=== PATIENT | female | born 2000 | race Caucasian/White ===

== ENCOUNTER 2021-09-10 00:38 | Inpatient (IN) | payer SELFPAY ==
[2021-09-10] VITALS (7 sets, daily range): BP systolic 103–126; BP diastolic 63–101; PULSE 65–88; RESP 16–18; TEMP 36.4–36.8; O2SAT 96–99; BMI 38.4
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
[2021-09-10 01:00] LABS: Add Urine Microscopic? NO; Charge for UA Resulting for Rev
[2021-09-10 01:01] LABS: Basophils # 0.1 10^3/uL (0.0-0.1); Basophils % 0.6 %; Eosinophils % 0.2 %; Hematocrit 47.6 % (37.0-47.0); Hemoglobin 15.5 g/dL (11.5-15.3); Lymphocytes # 2.8 10^3/uL (0.8-4.8); Lymphocytes % 23.9 %; Mean Corpuscular HGB Conc 32.6 g/dL (30.0-36.0); Mean Corpuscular Hemoglobin 28.1 pg (28.0-34.0); Mean Corpuscular Volume 86.4 fl (81-99); Mean Platelet Volume 10.6 fL (7.4-10.4); Monocytes # 0.6 10^3/uL (0.2-0.9); Monocytes % 4.9 %; Neutrophils % 70.1 %; Nucleated Red Blood Cells % 0 %; Platelet Count 316 10^3/cmm (130-400); Red Blood Count 5.51 10^6/uL (4.1-5.3); Red Cell Distribution Width 12.3 % (12.1-15.1); White Blood Count 11.5 10^3/uL (4.0-10.0)
[2021-09-10 01:03] LABS: Bilirubin Urine Neg (Negative); Blood Urine Neg (Negative); Glucose Urine UA Norm (Normal); Ketones Urine Negative (Negative); Leukocyte Esterase Urine Negative (Negative); Nitrate Urine Negative (Negative); Protein Urine Neg (Negative); Specific Gravity, Urine 1.015 (1.005-1.030); Urine Appearance Clear (CLEAR); Urine Color Colorless (Yellow); Urobilinogen Urine Norm (Negative); pH Urine 5 (5-7)
[2021-09-10 01:11] LABS: Amphetamines Screen Urine Negative (Negative); Barbiturates Screen Urine Negative (Negative); Benzodiazepines Screen Urine Negative (Negative); Cocaine Screen Urine Negative (Negative); Opiate Screen Urine Negative (Negative); PCP Screen Urine Negative (Negative); THC Screen Urine Negative (Negative)
[2021-09-10 01:23] LABS: HCG, Serum Qual Negative (Negative)
[2021-09-10 01:27] LABS: Alanine Aminotransferase 10 U/L (0-33); Albumin Level 4.9 g/dL (3.5-5.2); Alcohol Level 275 mg/dL (0-10); Alkaline Phosphatase 71 IU/L (35-105); Anion Gap 18.8 (5-19); Aspartate Amino Transferase 12 U/L (0-32); Blood Urea Nitrogen 10 mg/dL (6-20); Calcium 8.9 mg/dL (8.5-10.5); Carbon Dioxide 20 mmol/L (22-29); Chloride 106 mmol/L (98-107); Creatinine Clr Calc Pharmacy 151.3095; Globulin 2.8 g/dL (1.3-4.6); Glomerular Filtration Rate 89.7 mL/min (90-130); Glucose 96 mg/dL (65-115); Osmolality Calculated 291 mOsm/kg (285-295); Potassium 3.8 mmol/L (3.5-5.1); Sodium 141 mmol/L (136-145); Total Bilirubin 0.2 mg/dL (0.15-1.2); Total Protein 7.7 g/dL (6.6-8.7)
[2021-09-10 01:28] LABS: Acetaminophen < 5.0 ug/mL (10-30); Salicylate < 0.3 mg/dL (3-10)
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
[2021-09-10] MEDS: thiamine 100 mg Tablet PO (09:45)
[2021-09-10] MEDS: folic acid 1 mg Tablet PO (09:45)
[2021-09-10] MEDS: multivitamin therapeutic Tablet 1 TAB PO (09:45)
[2021-09-10] MEDS: nicotine 21 mg Patch 1 PATCH TRANSDERMA (10:21)
[2021-09-10] MEDS: acetaminophen 325 mg Tablet 650 MG PO (13:40)
[2021-09-10] MEDS: hyDROXYzine 25 mg Capsule 50 MG PO (13:41)
[2021-09-10] MEDS: ondansetron 4 MG Tablet PO (13:41)
[2021-09-10] MEDS: lurasidone 20 mg Tablet PO (16:46)
[2021-09-10] MEDS: trazodone 50 mg Tablet PO (21:08)
[2021-09-11] MEDS: hyDROXYzine 25 mg Capsule 50 MG PO ×3 (00:45→21:06)
[2021-09-11 06:00] VITALS: BP 82/49; PULSE 80; RESP 16; TEMP 36.8; O2SAT 98
[2021-09-11] MEDS: thiamine 100 mg Tablet PO (10:24)
[2021-09-11] MEDS: multivitamin therapeutic Tablet 1 TAB PO (10:24)
[2021-09-11] MEDS: folic acid 1 mg Tablet PO (10:24)
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
[2021-09-11] MEDS: nicotine 21 mg Patch 1 PATCH TRANSDERMA (13:53)
[2021-09-11 14:00] VITALS: BP 127/80; PULSE 80; RESP 16; TEMP 36.4; O2SAT 98
[2021-09-11] MEDS: nicotine 2 mg Gum BUCCAL ×3 (14:47→21:05)
[2021-09-11] MEDS: lurasidone 20 mg Tablet PO (17:25)
[2021-09-11 20:38] VITALS: RESP 17
[2021-09-11] MEDS: trazodone 50 mg Tablet PO (21:05)
[2021-09-12 06:00] VITALS: BP 97/63; PULSE 69; RESP 18; TEMP 36.4; O2SAT 98; BMI 38.4
[2021-09-12] MEDS: acetaminophen 325 mg Tablet 650 MG PO (06:43)
[2021-09-12] MEDS: thiamine 100 mg Tablet PO (10:39)
[2021-09-12] MEDS: multivitamin therapeutic Tablet 1 TAB PO (10:39)
[2021-09-12] MEDS: folic acid 1 mg Tablet PO (10:39)
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
[2021-09-12 11:46] VITALS: BP 124/74; PULSE 74; RESP 15; TEMP 36.6; O2SAT 95
[2021-09-12] MEDS: ondansetron 4 MG Tablet PO (12:57)
== END 2021-09-12 15:40 | disposition home or self-care (01) | DRG 885 ==
LOC: ER 01:56 → NP 02:10
PROVIDERS: Admitting Provider Psychiatry & Neurology Psychiatry; Emergency Provider Physician Assistant; Visit Provider Psychiatry & Neurology Psychiatry
DX: F31.30 Bipolar disorder, current episode depressed, mild or moderate severity, unspecified (principal); R45.851 Suicidal ideations; F60.3 Borderline personality disorder; F10.129 Alcohol abuse with intoxication, unspecified; Y90.8 Blood alcohol level of 240 mg/100 ml or more; R45.86 Emotional lability; E66.3 Overweight; Z68.38 Body mass index [BMI] 38.0-38.9, adult; Z91.52 Personal history of nonsuicidal self-harm; Z62.810 Personal history of physical and sexual abuse in childhood
CPT/HCPCS: 80053; 80306; 80307; 81003; 84703; 85025; 99285; Q0162